=== PATIENT | male | born 1950 | race Caucasian/White ===

== ENCOUNTER 2020-02-22 06:09 | Inpatient (IN) ==
[~2020-02-22 06:09] MED LIST: Dextrose 50 % in Water (Vial) 30 ML, Sodium Bicarbonate 20 MEQ, Lidocaine 1% 5 ML, Insu... TH ONE; Dextrose 50 % in Water (Vial) 30 ML, Sodium Bicarbonate 20 MEQ, Potassium Chloride 15 M... TH ONE; Heparin 15,000 UNIT in 0.9 % Sodium Chloride 500 ML IV ONE; Insulin Human Regular 100 UNIT in 0.9 % Sodium Chloride 100 ML IV PRN; Norepinephrine 4 MG in 0.9 % Sodium Chloride 250 ML IVC PRN
[2020-02-22] MEDS ORDERED: *HR* Midazolam HCl 5 MG/5 ML VIAL IVP ONE (06:30)
[2020-02-22] MEDS ORDERED: *HR* Rocuronium Bromide 50 MG/5 ML VIAL ONE ×2 (06:30→11:08)
[2020-02-22] MEDS ORDERED: *HR* PHENYLEPHRINE 1,000 MCG/10 ML SYRINGE IVP ONE (06:30)
[2020-02-22] MEDS ORDERED: Famotidine 20 MG/2 ML VIAL ONE (06:31)
[2020-02-22] MEDS ORDERED: *HR* Etomidate 20 MG/10 ML AMPUL IVP ONE (06:31)
[2020-02-22] MEDS ORDERED: *HR* FentaNYL (PF) 1,000 MCG/20 ML VIAL ONE (06:31)
[2020-02-22] MEDS ORDERED: Protamine Sulfate 250 MG/25 ML VIAL IVP ONE (06:35)
[2020-02-22] MEDS ORDERED: Calcium Gluconate 1,000 MG/10 ML VIAL ONE (06:35)
[2020-02-22] MEDS ORDERED: Tranexamic Acid 1,000 MG/10 ML VIAL ONE ×2 (06:35→10:31)
[2020-02-22] MEDS ORDERED: Vancomycin 1,500 MG/265 ML IV.SOLN IVPB ONE (06:40)
[2020-02-22] MEDS ORDERED: Aspirin 81 MG TAB.CHEW PO ONE (07:15)
[2020-02-22] MEDS ORDERED: *HR* Vasopressin 20 UNIT/ML VIAL ONE (08:05)
[2020-02-22 08:20] LABS: ABG Base Excess -1 mEq/L (-2 to 3); ABG Chloride 109 mEq/L (98-107); ABG Glucose 120 mg/dL (60-95); ABG HCO3 26 mEq/L (21-27); ABG Ionized Calcium 1.22 mmol/L (1.15-1.35); ABG Oxygen Saturation 100 % (95-98); ABG PCO2 57 mmHg (35-45); ABG PH 7.27 pH Units (7.32-7.45); ABG PO2 250 mmHg (85-104); ABG TCO2 28 mEq/L (20-26)
[2020-02-22] MEDS ORDERED: ceFAZolin 2,000 MG in 0.9 % Sodium Chloride 100 ML IVP ONE (08:50)
[2020-02-22] MEDS ORDERED: Chlorhexidine Rinse 15 ML MOUTHWASH MM SCH (09:00)
[2020-02-22 09:23] LABS: ABG Base Excess -2 mEq/L (-2 to 3); ABG Chloride 106 mEq/L (98-107); ABG Glucose 142 mg/dL (60-95); ABG HCO3 25 mEq/L (21-27); ABG Ionized Calcium 1.19 mmol/L (1.15-1.35); ABG Oxygen Saturation 100 % (95-98); ABG PCO2 52 mmHg (35-45); ABG PO2 192 mmHg (85-104); ABG TCO2 27 mEq/L (20-26)
[2020-02-22 10:21] LABS: ABG Base Excess 0 mEq/L (-2 to 3); ABG Chloride 100 mEq/L (98-107); ABG Glucose 191 mg/dL (60-95); ABG HCO3 25 mEq/L (21-27); ABG Ionized Calcium 1.01 mmol/L (1.15-1.35); ABG PCO2 38 mmHg (35-45); ABG PH 7.42 pH Units (7.32-7.45); ABG PO2 > 630 mmHg (85-104); ABG TCO2 26 mEq/L (20-26)
[2020-02-22 10:56] LABS: ABG Base Excess 1 mEq/L (-2 to 3); ABG Chloride 104 mEq/L (98-107); ABG Glucose 179 mg/dL (60-95); ABG HCO3 25 mEq/L (21-27); ABG Ionized Calcium 1.04 mmol/L (1.15-1.35); ABG Oxygen Saturation 100 % (95-98); ABG PCO2 35 mmHg (35-45); ABG PH 7.47 pH Units (7.32-7.45); ABG PO2 603 mmHg (85-104); ABG TCO2 26 mEq/L (20-26)
[2020-02-22 11:18] LABS: ABG Base Excess 3 mEq/L (-2 to 3); ABG Chloride 105 mEq/L (98-107); ABG Glucose 146 mg/dL (60-95); ABG HCO3 27 mEq/L (21-27); ABG Ionized Calcium 1.01 mmol/L (1.15-1.35); ABG Oxygen Saturation 100 % (95-98); ABG PCO2 41 mmHg (35-45); ABG PH 7.43 pH Units (7.32-7.45); ABG PO2 569 mmHg (85-104); ABG TCO2 28 mEq/L (20-26)
[2020-02-22 12:04] LABS: ABG Base Excess 0 mEq/L (-2 to 3); ABG Chloride 104 mEq/L (98-107); ABG Glucose 100 mg/dL (60-95); ABG HCO3 26 mEq/L (21-27); ABG Oxygen Saturation 98 % (95-98); ABG PCO2 45 mmHg (35-45); ABG PH 7.37 pH Units (7.32-7.45); ABG PO2 101 mmHg (85-104); ABG TCO2 27 mEq/L (20-26)
[2020-02-22] MEDS ORDERED: Potassium Chloride 40 MEQ/200 ML BAG IVPB PRN (12:29)
[2020-02-22] MEDS ORDERED: Insulin Regular, Human 100 UNIT/ML IV PRN (12:29)
[2020-02-22] MEDS ORDERED: Naloxone 0.4 MG/ML INJ IVP PRN (12:29)
[2020-02-22] MEDS ORDERED: *HR* Promethazine 25 MG/ML VIAL IVP PRN (12:29)
[2020-02-22] MEDS ORDERED: Albumin Human 5% 12.5 GM/250 ML IV.SOLN IVPB PRN (12:29)
[2020-02-22] MEDS ORDERED: *HR* Dextrose 50 % in Water (Vial) 50 ML VIAL IVP PRN (12:29)
[2020-02-22] MEDS ORDERED: Acetaminophen 325 MG TABLET PO PRN (12:29)
[2020-02-22] MEDS ORDERED: Ondansetron 4 MG/2 ML VIAL IVP PRN (12:29)
[2020-02-22] MEDS ORDERED: Insulin Human Regular 100 UNIT in 0.9 % Sodium Chloride 100 ML IVC SCH (12:30)
[2020-02-22] MEDS ORDERED: Norepinephrine 4 MG/254 ML IV.SOLN IVC SCH (12:30)
[2020-02-22 12:45] LABS: ABG Base Excess 2 mEq/L (-2 to 3); ABG HCO3 28 mEq/L (21-27); ABG Oxygen Saturation 100 % (95-98); ABG PCO2 46 mmHg (35-45); ABG PH 7.39 pH Units (7.32-7.45); ABG PO2 184 mmHg (85-104); ABG TCO2 29 mEq/L (20-26)
[2020-02-22 12:55] LABS: Basophils # 0.1 K/mcL (0.0-0.2); Basophils % 0.5 %; Eosinophils # 0.3 K/mcL (0.0-0.6); Eosinophils % 1.5 %; Hematocrit 29.6 % (37.5-50.1); Hemoglobin 9.4 g/dL (12.9-16.9); Immature Granulocytes % 0.7 % (0-4); Lymphocytes # 1.6 K/mcL (0.6-4.6); Lymphocytes % 8.9 %; Mean Corpuscular HGB Conc 31.8 g/dL (31.6-35.5); Mean Corpuscular Hemoglobin 26.8 pg (28.0-33.3); Mean Corpuscular Volume 84.3 fL (83.0-100.0); Mean Platelet Volume 9.2 fL (9.4-12.4); Monocytes # 0.6 K/mcL (0.0-1.3); Monocytes % 3.2 %; Neutrophils # 15.6 K/mcL (1.6-8.9); Platelet Count 232 K/mcL (140-400); Red Blood Count 3.51 M/mcL (4.19-5.50); Red Cell Distribution Width 13.4 % (11.5-14.5); Segmented Neutrophils % 85.2 %
[2020-02-22 12:58] LABS: White Blood Count 18.3 K/mcL (4.3-11.1)
[2020-02-22 13:11] LABS: INR 1.4
[2020-02-22 13:13] LABS: Activated Partial Thrombo Time 32.9 Seconds (26.0-36.0)
[2020-02-22 13:15] LABS: Prothrombin Time 16.4 Seconds (9.4-12.1)
[2020-02-22 13:17] LABS: BUN/Creatinine Ratio 16 (6-26); Blood Urea Nitrogen 15 mg/dL (8-23); Calcium 8.8 mg/dL (8.6-10.3); Carbon Dioxide 26 mEq/L (23-29); Chloride 107 mEq/L (98-107); Glucose 87 mg/dL (70-105); Magnesium 2.6 mg/dL (1.6-2.6); Osmolality,Calculated 288 (280-300); Potassium 4.2 mEq/L (3.5-5.1); Sodium 139 mEq/L (136-145); eGFR For African Americans > 60 (> 60); eGFR For Non-African Americans > 60 (> 60)
[2020-02-22] MEDS: niCARdipine 20 MG/200 ML MLS IVC SCH ×3 (13:31→21:05)
[2020-02-22] MEDS: 0.9 % Sodium Chloride 1,000 ML IVC SCH (13:41)
[2020-02-22] MEDS: *HR* FentaNYL (PF) 100 MCG/2 ML VIAL IVP PRN ×4 (15:05→22:06)
[2020-02-22] MEDS ORDERED: Albumin Human 25% 25 GM/100 ML IV.SOLN IVPB ONE (15:31)
[2020-02-22] MEDS ORDERED: Mannitol 25% vial 12.5 GM/50 ML VIAL IVPB ONE (15:31)
[2020-02-22] MEDS ORDERED: Sodium Bicarbonate 50 MEQ/50 ML VIAL IVP ONE (15:31)
[2020-02-22] MEDS ORDERED: Lidocaine 2% Syringe 100 MG/5 ML IVP ONE (15:31)
[2020-02-22] MEDS ORDERED: *HR* Phenylephrine 10 MG/ML VIAL IVC ONE (15:31)
[2020-02-22] MEDS ORDERED: *HR* Magnesium Sulfate 2 GM/50 ML PIGGYBACK IVPB ONE (15:31)
[2020-02-22] MEDS ORDERED: Tranexamic Acid 1,000 MG/10 ML VIAL IR ONE (15:31)
[2020-02-22] MEDS ORDERED: Heparin 1,000 UNITS/500 mL IV.SOLN IR ONE (15:31)
[2020-02-22] MEDS ORDERED: *HR* Heparin 10,000 UNIT/10 ML VIAL IR ONE (15:31)
[2020-02-22] MEDS: *HR* OxyCODONE/APAP 5/325 TABLET PO PRN (16:18)
[2020-02-22 16:49] LABS: ABG Base Excess 0 mEq/L (-2 to 3); ABG HCO3 25 mEq/L (21-27); ABG Oxygen Saturation 97 % (95-98); ABG PCO2 42 mmHg (35-45); ABG PH 7.39 pH Units (7.32-7.45); ABG PO2 91 mmHg (85-104); ABG TCO2 27 mEq/L (20-26); Blood Gas VT 700 cc
[2020-02-22 17:59] LABS: ABG Base Excess 2 mEq/L (-2 to 3); ABG HCO3 28 mEq/L (21-27); ABG Oxygen Saturation 93 % (95-98); ABG PCO2 55 mmHg (35-45); ABG PH 7.32 pH Units (7.32-7.45); ABG PO2 73 mmHg (85-104); ABG TCO2 30 mEq/L (20-26)
[2020-02-22 18:51] LABS: ABG Base Excess 0 mEq/L (-2 to 3); ABG HCO3 26 mEq/L (21-27); ABG Oxygen Saturation 99 % (95-98); ABG PCO2 43 mmHg (35-45); ABG PH 7.38 pH Units (7.32-7.45); ABG PO2 129 mmHg (85-104); ABG TCO2 27 mEq/L (20-26)
[2020-02-22] MEDS: CeFAZolin 2 GM/120 ML BAG IVPB SCH (19:30)
[2020-02-22] MEDS: Chlorhexidine Rinse 15 ML MOUTHWASH MM SCH (21:04)
[2020-02-23] MEDS: *HR* OxyCODONE/APAP 5/325 TABLET PO PRN (03:36)
[2020-02-23 04:29] LABS: Basophils % 0.3 %; Eosinophils % 0.1 %; Hematocrit 30.2 % (37.5-50.1); Hemoglobin 9.7 g/dL (12.9-16.9); Immature Granulocytes % 0.4 % (0-4); Lymphocytes # 1.3 K/mcL (0.6-4.6); Lymphocytes % 9.8 %; Mean Corpuscular HGB Conc 32.1 g/dL (31.6-35.5); Mean Corpuscular Hemoglobin 27.2 pg (28.0-33.3); Mean Corpuscular Volume 84.6 fL (83.0-100.0); Mean Platelet Volume 9.7 fL (9.4-12.4); Monocytes # 1.2 K/mcL (0.0-1.3); Monocytes % 8.9 %; Platelet Count 212 K/mcL (140-400); Red Blood Count 3.57 M/mcL (4.19-5.50); Red Cell Distribution Width 13.2 % (11.5-14.5); Segmented Neutrophils % 80.5 %; White Blood Count 13.7 K/mcL (4.3-11.1)
[2020-02-23 04:51] LABS: BUN/Creatinine Ratio 18 (6-26); Blood Urea Nitrogen 16 mg/dL (8-23); Calcium 7.8 mg/dL (8.6-10.3); Carbon Dioxide 25 mEq/L (23-29); Chloride 106 mEq/L (98-107); Glucose 123 mg/dL (70-105); Osmolality,Calculated 289 (280-300); Potassium 4.6 mEq/L (3.5-5.1); Sodium 138 mEq/L (136-145); eGFR For African Americans > 60 (> 60); eGFR For Non-African Americans > 60 (> 60)
[2020-02-23] MEDS: niCARdipine 20 MG/200 ML MLS IVC SCH ×2 (05:11→05:14)
[2020-02-23] MEDS: CeFAZolin 2 GM/120 ML BAG IVPB SCH (05:14)
[2020-02-23] MEDS: 0.9 % Sodium Chloride 1,000 ML IVC SCH (06:10)
[2020-02-23] MEDS: Chlorhexidine Rinse 15 ML MOUTHWASH MM SCH ×2 (07:52→21:12)
[2020-02-23] MEDS ORDERED: Verapamil ER (24 HR) 240 MG TABLET.ER PO SCH (09:00)
[2020-02-23] MEDS ORDERED: allopurinoL 100 MG TABLET PO SCH (09:00)
[2020-02-23] MEDS ORDERED: Aspirin Enteric Coated 81 MG Tablet PO SCH (09:00)
[2020-02-23] MEDS ORDERED: Pantoprazole 40 MG VIAL IVP SCH (09:00)
[2020-02-23] MEDS ORDERED: *HR* Promethazine 25 MG/ML VIAL IVP PRN (12:29)
[2020-02-23] MEDS ORDERED: *HR* FentaNYL (PF) 100 MCG/2 ML VIAL IVP PRN (12:29)
[2020-02-23] MEDS ORDERED: Ondansetron 4 MG/2 ML VIAL IVP PRN (12:29)
[2020-02-23] MEDS ORDERED: *HR* Dextrose 50 % in Water (Vial) 50 ML VIAL IVP PRN (12:29)
[2020-02-23] MEDS ORDERED: Acetaminophen 325 MG TABLET PO PRN (12:29)
[2020-02-23] MEDS ORDERED: Naloxone 0.4 MG/ML INJ IVP PRN (12:29)
[2020-02-23] MEDS ORDERED: *HR* OxyCODONE/APAP 5/325 TABLET PO PRN (12:29)
[2020-02-23] MEDS ORDERED: Dextrose Gel 15 GM/37.5 ML TUBE PO PRN ×2 (12:29)
[2020-02-23] MEDS ORDERED: D5% in Water 1,000 ML IVC PRN (12:29)
[2020-02-23] MEDS: Ketorolac 15 MG/ML VIAL IVP SCH ×2 (14:05→21:11)
[2020-02-23] MEDS: Insulin LISPRO 300 UNITS/3 ML VIAL SQ SCH ×3 (16:36→21:29)
[2020-02-23] MEDS: *HR* Heparin 5,000 UNIT/ML VIAL SQ SCH (18:09)
[2020-02-23] MEDS ORDERED: Amiodarone Premix 360 MG/200 ML BAG IVC ONE (19:41)
[2020-02-23] MEDS ORDERED: Amiodarone Premix 150 MG/100 ML BAG IVPB ONE (19:41)
[2020-02-24] MEDS: Amiodarone Premix 360 MG/200 ML BAG IVC SCH ×2 (03:20→17:05)
[2020-02-24] MEDS: Ketorolac 15 MG/ML VIAL IVP SCH ×4 (03:22→20:24)
[2020-02-24 03:55] LABS: Basophils % 0.3 %; Eosinophils # 0.1 K/mcL (0.0-0.6); Hematocrit 27.8 % (37.5-50.1); Hemoglobin 8.7 g/dL (12.9-16.9); Immature Granulocytes % 0.4 % (0-4); Lymphocytes # 1.5 K/mcL (0.6-4.6); Mean Corpuscular HGB Conc 31.3 g/dL (31.6-35.5); Mean Corpuscular Hemoglobin 26.6 pg (28.0-33.3); Mean Platelet Volume 9.9 fL (9.4-12.4); Monocytes % 8.9 %; Neutrophils # 8.9 K/mcL (1.6-8.9); Platelet Count 166 K/mcL (140-400); Red Blood Count 3.27 M/mcL (4.19-5.50); Red Cell Distribution Width 13.4 % (11.5-14.5); Segmented Neutrophils % 76.4 %; White Blood Count 11.7 K/mcL (4.3-11.1)
[2020-02-24 03:58] LABS: BUN/Creatinine Ratio 28 (6-26); Blood Urea Nitrogen 25 mg/dL (8-23); Carbon Dioxide 26 mEq/L (23-29); Chloride 102 mEq/L (98-107); Glucose 128 mg/dL (70-105); Osmolality,Calculated 282 (280-300); Potassium 4.1 mEq/L (3.5-5.1); Sodium 133 mEq/L (136-145); eGFR For African Americans > 60 (> 60); eGFR For Non-African Americans > 60 (> 60)
[2020-02-24] MEDS: *HR* Heparin 5,000 UNIT/ML VIAL SQ SCH ×2 (06:09→17:16)
[2020-02-24] MEDS: Chlorhexidine Rinse 15 ML MOUTHWASH MM SCH ×2 (08:11→20:24)
[2020-02-24] MEDS: Pantoprazole 40 MG VIAL IVP SCH (08:12)
[2020-02-24] MEDS: Aspirin Enteric Coated 81 MG Tablet PO SCH (08:12)
[2020-02-24] MEDS: allopurinoL 100 MG TABLET PO SCH (08:12)
[2020-02-24] MEDS: Insulin LISPRO 300 UNITS/3 ML VIAL SQ SCH ×4 (08:13→20:07)
[2020-02-24] MEDS ORDERED: Verapamil ER (24 HR) 240 MG TABLET.ER PO SCH (09:00)
[2020-02-25] MEDS: Ketorolac 15 MG/ML VIAL IVP SCH ×4 (02:25→19:53)
[2020-02-25] MEDS: Amiodarone Premix 360 MG/200 ML BAG IVC SCH (05:43)
[2020-02-25] MEDS: *HR* Heparin 5,000 UNIT/ML VIAL SQ SCH ×2 (05:44→17:05)
[2020-02-25 06:35] LABS: Basophils % 0.3 %; Eosinophils # 0.3 K/mcL (0.0-0.6); Hemoglobin 8.9 g/dL (12.9-16.9); Immature Granulocytes % 0.4 % (0-4); Lymphocytes # 1.5 K/mcL (0.6-4.6); Lymphocytes % 10.7 %; Mean Corpuscular HGB Conc 31.8 g/dL (31.6-35.5); Mean Corpuscular Hemoglobin 26.6 pg (28.0-33.3); Mean Corpuscular Volume 83.6 fL (83.0-100.0); Mean Platelet Volume 10.2 fL (9.4-12.4); Monocytes % 7.2 %; Platelet Count 213 K/mcL (140-400); Red Blood Count 3.35 M/mcL (4.19-5.50); Red Cell Distribution Width 13.8 % (11.5-14.5); Segmented Neutrophils % 79.4 %; White Blood Count 13.8 K/mcL (4.3-11.1)
[2020-02-25 06:44] LABS: BUN/Creatinine Ratio 34 (6-26); Blood Urea Nitrogen 30 mg/dL (8-23); Calcium 7.8 mg/dL (8.6-10.3); Carbon Dioxide 25 mEq/L (23-29); Chloride 103 mEq/L (98-107); Glucose 110 mg/dL (70-105); Osmolality,Calculated 285 (280-300); Potassium 3.6 mEq/L (3.5-5.1); Sodium 134 mEq/L (136-145); eGFR For African Americans > 60 (> 60); eGFR For Non-African Americans > 60 (> 60)
[2020-02-25] MEDS: Insulin LISPRO 300 UNITS/3 ML VIAL SQ SCH ×4 (08:11→21:06)
[2020-02-25] MEDS: Pantoprazole 40 MG VIAL IVP SCH (08:48)
[2020-02-25] MEDS: Chlorhexidine Rinse 15 ML MOUTHWASH MM SCH ×2 (08:48→19:53)
[2020-02-25] MEDS: allopurinoL 100 MG TABLET PO SCH (08:49)
[2020-02-25] MEDS: Aspirin Enteric Coated 81 MG Tablet PO SCH (08:49)
[2020-02-25] MEDS: *HR* Amiodarone 200 MG TABLET PO SCH ×2 (09:41→19:53)
[2020-02-25] MEDS: Verapamil ER (24 HR) 120 MG TABLET.ER PO SCH (09:41)
[2020-02-26] MEDS: Ketorolac 15 MG/ML VIAL IVP SCH ×2 (02:44→07:20)
[2020-02-26] MEDS: *HR* Heparin 5,000 UNIT/ML VIAL SQ SCH (05:29)
[2020-02-26] MEDS: Insulin LISPRO 300 UNITS/3 ML VIAL SQ SCH ×4 (07:08→20:49)
[2020-02-26] MEDS: Pantoprazole 40 MG VIAL IVP SCH (07:20)
[2020-02-26] MEDS: *HR* Amiodarone 200 MG TABLET PO SCH ×2 (07:21→20:45)
[2020-02-26] MEDS: allopurinoL 100 MG TABLET PO SCH (07:21)
[2020-02-26] MEDS: Verapamil ER (24 HR) 120 MG TABLET.ER PO SCH (07:21)
[2020-02-26] MEDS: Chlorhexidine Rinse 15 ML MOUTHWASH MM SCH ×2 (07:21→20:46)
[2020-02-26] MEDS: Aspirin Enteric Coated 81 MG Tablet PO SCH (07:21)
[2020-02-26] MEDS: *HR* Dabigatran 150 MG CAPSULE PO SCH (20:43)
[2020-02-27 00:59] LABS: Basophils % 0.4 %; Eosinophils # 0.4 K/mcL (0.0-0.6); Eosinophils % 3.5 %; Hematocrit 27.5 % (37.5-50.1); Hemoglobin 8.6 g/dL (12.9-16.9); Immature Granulocytes % 0.6 % (0-4); Lymphocytes # 1.4 K/mcL (0.6-4.6); Lymphocytes % 13.1 %; Mean Corpuscular HGB Conc 31.3 g/dL (31.6-35.5); Mean Corpuscular Hemoglobin 25.6 pg (28.0-33.3); Mean Corpuscular Volume 81.8 fL (83.0-100.0); Mean Platelet Volume 9.6 fL (9.4-12.4); Monocytes # 0.8 K/mcL (0.0-1.3); Monocytes % 7.9 %; Neutrophils # 7.8 K/mcL (1.6-8.9); Platelet Count 299 K/mcL (140-400); Red Blood Count 3.36 M/mcL (4.19-5.50); Red Cell Distribution Width 14.3 % (11.5-14.5); Segmented Neutrophils % 74.5 %; White Blood Count 10.5 K/mcL (4.3-11.1)
[2020-02-27 01:14] LABS: BUN/Creatinine Ratio 30 (6-26); Blood Urea Nitrogen 24 mg/dL (8-23); Calcium 8.2 mg/dL (8.6-10.3); Carbon Dioxide 24 mEq/L (23-29); Chloride 102 mEq/L (98-107); Glucose 115 mg/dL (70-105); Osmolality,Calculated 283 (280-300); Potassium 3.4 mEq/L (3.5-5.1); Sodium 134 mEq/L (136-145); eGFR For African Americans > 60 (> 60); eGFR For Non-African Americans > 60 (> 60)
[2020-02-27] MEDS: *HR* Dabigatran 150 MG CAPSULE PO SCH ×2 (07:35→19:58)
[2020-02-27] MEDS: Chlorhexidine Rinse 15 ML MOUTHWASH MM SCH ×2 (07:35→19:58)
[2020-02-27] MEDS: *HR* Amiodarone 200 MG TABLET PO SCH ×2 (07:35→19:58)
[2020-02-27] MEDS: Verapamil ER (24 HR) 120 MG TABLET.ER PO SCH (07:35)
[2020-02-27] MEDS: Aspirin Enteric Coated 81 MG Tablet PO SCH (07:35)
[2020-02-27] MEDS: allopurinoL 100 MG TABLET PO SCH (07:35)
[2020-02-27] MEDS: Pantoprazole 40 MG VIAL IVP SCH (07:36)
[2020-02-27] MEDS: Insulin LISPRO 300 UNITS/3 ML VIAL SQ SCH ×4 (07:36→19:59)
[2020-02-27] MEDS ORDERED: Potassium Chloride Elixir 20 MEQ/15 ML UDC PO ONE (13:20)
[2020-02-28] MEDS: Aspirin Enteric Coated 81 MG Tablet PO SCH (08:05)
[2020-02-28] MEDS: Verapamil ER (24 HR) 120 MG TABLET.ER PO SCH (08:05)
[2020-02-28] MEDS: Pantoprazole 40 MG VIAL IVP SCH (08:05)
[2020-02-28] MEDS: Chlorhexidine Rinse 15 ML MOUTHWASH MM SCH (08:06)
[2020-02-28] MEDS: *HR* Dabigatran 150 MG CAPSULE PO SCH (08:06)
[2020-02-28] MEDS: allopurinoL 100 MG TABLET PO SCH (08:06)
[2020-02-28] MEDS: *HR* Amiodarone 200 MG TABLET PO SCH (08:06)
[2020-02-28] MEDS: Insulin LISPRO 300 UNITS/3 ML VIAL SQ SCH ×2 (08:10→11:42)
[2020-02-28 11:10] VITALS: BP 119/73
== END 2020-02-28 15:32 | disposition home or self-care (01) | DRG 166 ==
LOC: SAMDAY 06:09 → ICNU 12:23 → 2NNU 02-24 13:11
PROVIDERS: ADMIT Thoracic Surgery (Cardiothoracic Vascular Surgery); ATTEND Thoracic Surgery (Cardiothoracic Vascular Surgery)

== ENCOUNTER 2020-10-12 18:35 | Inpatient (IN) ==
[2020-10-12] MEDS ORDERED: *HR* Heparin 5,000 UNIT/ML VIAL IVP ONE (19:26)
[2020-10-12] MEDS ORDERED: *HR* Heparin 5,000 UNIT/ML VIAL IVP PRN ×2 (19:26)
[2020-10-12] MEDS ORDERED: Heparin 25,000UNIT/250ML 1/2NS 25,000 UNIT/250 ML IV.SOLN IVC SCH (19:30)
[2020-10-12 19:49] LABS: Basophils # 0.1 K/mcL (0.0-0.2); Basophils % 0.7 %; Eosinophils # 0.2 K/mcL (0.0-0.6); Eosinophils % 1.5 %; Hemoglobin 9.7 g/dL (12.9-16.9); Immature Granulocytes % 0.4 % (0-4); Lymphocytes % 9.1 %; Mean Corpuscular HGB Conc 30.3 g/dL (31.6-35.5); Mean Corpuscular Hemoglobin 23.4 pg (28.0-33.3); Mean Corpuscular Volume 77.1 fL (83.0-100.0); Mean Platelet Volume 10.1 fL (9.4-12.4); Monocytes # 0.8 K/mcL (0.0-1.3); Monocytes % 7.7 %; Neutrophils # 8.7 K/mcL (1.6-8.9); Platelet Count 305 K/mcL (140-400); Red Blood Count 4.15 M/mcL (4.19-5.50); Red Cell Distribution Width 17.9 % (11.5-14.5); Segmented Neutrophils % 80.6 %; White Blood Count 10.8 K/mcL (4.3-11.1)
[2020-10-12 19:59] LABS: Heparin anti-factor XA UFH < 0.04 IU/mL (0.30-0.70)
[2020-10-12 20:00] LABS: INR 1.6; Prothrombin Time 18.4 Seconds (9.4-12.1)
[2020-10-12 20:08] LABS: BUN/Creatinine Ratio 13 (6-26); Blood Urea Nitrogen 10 mg/dL (8-23); Calcium 7.9 mg/dL (8.6-10.3); Carbon Dioxide 22 mEq/L (23-29); Chloride 104 mEq/L (98-107); Glucose 201 mg/dL (70-105); Osmolality,Calculated 289 (280-300); Sodium 137 mEq/L (136-145); eGFR For African Americans > 60 (> 60); eGFR For Non-African Americans > 60 (> 60)
[2020-10-12] MEDS ORDERED: Potassium Chloride 20 MEQ, Lidocaine 1% 2 ML in 0.9 % Sodium Chloride 250 ML IVPB ONE (20:15)
[2020-10-12] MEDS ORDERED: Potassium Chloride 40 MEQ, Lidocaine 1% 2 ML in 0.9 % Sodium Chloride 500 ML IVPB ONE (20:24)
[2020-10-12] MEDS ORDERED: Ondansetron 4 MG/2 ML VIAL IVP PRN (21:42)
[2020-10-12] MEDS ORDERED: Naloxone 0.4 MG/ML INJ IVP PRN (21:42)
[2020-10-13 01:24] LABS: Basophils # 0.1 K/mcL (0.0-0.2); Basophils % 0.6 %; Eosinophils # 0.2 K/mcL (0.0-0.6); Eosinophils % 1.9 %; Hemoglobin 9.2 g/dL (12.9-16.9); Immature Granulocytes % 0.4 % (0-4); Lymphocytes % 10.1 %; Mean Corpuscular HGB Conc 31.7 g/dL (31.6-35.5); Mean Corpuscular Hemoglobin 24.3 pg (28.0-33.3); Mean Corpuscular Volume 76.5 fL (83.0-100.0); Mean Platelet Volume 10.1 fL (9.4-12.4); Monocytes # 0.8 K/mcL (0.0-1.3); Monocytes % 8.4 %; Neutrophils # 7.6 K/mcL (1.6-8.9); Platelet Count 275 K/mcL (140-400); Red Blood Count 3.79 M/mcL (4.19-5.50); Segmented Neutrophils % 78.6 %; White Blood Count 9.6 K/mcL (4.3-11.1)
[2020-10-13 01:31] LABS: Heparin anti-factor XA UFH 0.54 IU/mL (0.30-0.70)
[2020-10-13 01:32] LABS: INR 1.6; Prothrombin Time 18.2 Seconds (9.4-12.1)
[2020-10-13 01:47] LABS: Alanine Aminotransferase 32 Units/L (7-52); Albumin 2.6 g/dL (3.5-5.7); Albumin/Globulin Ratio 0.8 (1.1-2.2); Alkaline Phosphatase 303 Units/L (34-104); Aspartate Amino Transferase 52 Units/L (13-39); BUN/Creatinine Ratio 13 (6-26); Bilirubin,Total 0.7 mg/dL (0.3-1.0); Blood Urea Nitrogen 9 mg/dL (8-23); Calcium 7.9 mg/dL (8.6-10.3); Carbon Dioxide 22 mEq/L (23-29); Chloride 106 mEq/L (98-107); Globulin 3.2 g/dL (2.4-3.5); Glucose 179 mg/dL (70-105); Osmolality,Calculated 289 (280-300); Phosphorous 2.3 mg/dL (2.7-4.5); Potassium 3.4 mEq/L (3.5-5.1); Sodium 138 mEq/L (136-145); Total Protein 5.8 g/dL (6.4-8.9); eGFR For African Americans > 60 (> 60); eGFR For Non-African Americans > 60 (> 60)
[2020-10-13] MEDS ORDERED: Iron Sucrose Complex 400 MG in 0.9 % Sodium Chloride 250 ML IVPB ONE (10:08)
[2020-10-13 11:49] LABS: Adenovirus Not Detected (Not Detect); Bordetella Pertussis Not Detected (Not Detect); Chlamydophila pneumoniae Not Detected (Not Detect); Coronavirus 229E Not Detected (Not Detect); Coronavirus HKU1 Not Detected (Not Detect); Coronavirus NL63 Not Detected (Not Detect); Coronavirus OC43 Not Detected (Not Detect); Human Metapneumovirus Not Detected (Not Detect); Human Rhinovirus/Enterovirus Not Detected (Not Detect); Influenza A Subtype 2009 H1 Not Detected (Not Detect); Influenza B Not Detected (Not Detect); Mycoplasma pneumoniae Not Detected (Not Detect); Parainfluenza Virus 1 Not Detected (Not Detect); Parainfluenza Virus 2 Not Detected (Not Detect); Parainfluenza Virus 3 Not Detected (Not Detect); Parainfluenza Virus 4 Not Detected (Not Detect); Respiratory Syncytial Virus Not Detected (Not Detect); SARS-CoV-2 Not Detected (Not Detect)
[2020-10-13] MEDS ORDERED: 0.9 % Sodium Chloride 500 ML ONE (12:14)
[2020-10-13] MEDS ORDERED: *HR* FentaNYL (PF) 100 MCG/2 ML VIAL IVP ONE ×2 (12:36→12:45)
[2020-10-13] MEDS ORDERED: *HR* Midazolam HCl 2 MG/2 ML VIAL IVP ONE (12:36)
[2020-10-13] MEDS ORDERED: *HR* Heparin 5,000 UNIT/ML VIAL IVP PRN ×2 (14:58)
[2020-10-13] MEDS ORDERED: Heparin 25,000UNIT/250ML 1/2NS 25,000 UNIT/250 ML IV.SOLN IVC SCH (15:00)
[2020-10-13 16:28] LABS: Hematocrit 31.2 % (37.5-50.1); Hemoglobin 9.5 g/dL (12.9-16.9); Mean Corpuscular HGB Conc 30.4 g/dL (31.6-35.5); Mean Corpuscular Hemoglobin 23.6 pg (28.0-33.3); Mean Corpuscular Volume 77.6 fL (83.0-100.0); Mean Platelet Volume 9.9 fL (9.4-12.4); Platelet Count 288 K/mcL (140-400); Red Blood Count 4.02 M/mcL (4.19-5.50); Red Cell Distribution Width 18.2 % (11.5-14.5); White Blood Count 10.2 K/mcL (4.3-11.1)
[2020-10-13 16:36] LABS: Heparin anti-factor XA UFH 0.05 IU/mL (0.30-0.70)
[2020-10-13 16:37] LABS: INR 1.6; Prothrombin Time 17.7 Seconds (9.4-12.1)
[2020-10-13] MEDS ORDERED: SODIUM CHLORIDE/NAHCO3/KCL/PEG 4,000 ML SOLN.RECON PO ONE (17:00)
[2020-10-14 04:11] LABS: Basophils # 0.1 K/mcL (0.0-0.2); Basophils % 0.8 %; Eosinophils # 0.2 K/mcL (0.0-0.6); Eosinophils % 1.6 %; Hematocrit 30.9 % (37.5-50.1); Hemoglobin 9.4 g/dL (12.9-16.9); Immature Granulocytes % 0.3 % (0-4); Lymphocytes # 0.9 K/mcL (0.6-4.6); Lymphocytes % 8.1 %; Mean Corpuscular HGB Conc 30.4 g/dL (31.6-35.5); Mean Platelet Volume 10.1 fL (9.4-12.4); Monocytes # 0.7 K/mcL (0.0-1.3); Monocytes % 6.8 %; Neutrophils # 8.6 K/mcL (1.6-8.9); Platelet Count 278 K/mcL (140-400); Red Blood Count 3.91 M/mcL (4.19-5.50); Red Cell Distribution Width 18.5 % (11.5-14.5); Segmented Neutrophils % 82.4 %; White Blood Count 10.5 K/mcL (4.3-11.1)
[2020-10-14 04:28] LABS: BUN/Creatinine Ratio 13 (6-26); Blood Urea Nitrogen 9 mg/dL (8-23); Calcium 8.1 mg/dL (8.6-10.3); Carbon Dioxide 22 mEq/L (23-29); Chloride 106 mEq/L (98-107); Glucose 119 mg/dL (70-105); Magnesium 1.8 mg/dL (1.6-2.6); Osmolality,Calculated 282 (280-300); Phosphorous 2.2 mg/dL (2.7-4.5); Potassium 3.7 mEq/L (3.5-5.1); Sodium 136 mEq/L (136-145); eGFR For African Americans > 60 (> 60); eGFR For Non-African Americans > 60 (> 60)
[2020-10-14 07:44] VITALS: BP 116/69
[2020-10-14] MEDS ORDERED: allopurinoL 100 MG TABLET PO SCH (09:00)
[2020-10-14] MEDS ORDERED: Apixaban 5 MG TABLET PO SCH (09:00)
[2020-10-14] MEDS ORDERED: Aspirin Enteric Coated 81 MG Tablet PO SCH (09:00)
[2020-10-14] MEDS ORDERED: lisinopriL 20 MG TABLET PO SCH (09:00)
== END 2020-10-14 12:27 | disposition home or self-care (01) | DRG 240 ==
LOC: EMEROOARM 18:35 → 3ANU 18:35 → SUATTDRO 20:40 → 3ANU 21:01
PROVIDERS: ADMIT Family Medicine; ATTEND Internal Medicine
PROC: IRLIVER (2020-10-13 13:00)

== ENCOUNTER 2020-11-13 11:47 | Inpatient (IN) ==
[2020-11-13] MEDS ORDERED: Melatonin 3 MG TABLET PO PRN (14:29)
[2020-11-13] MEDS ORDERED: Naloxone 0.4 MG/ML INJ IVP PRN (14:29)
[2020-11-13] MEDS: 0.9 % Sodium Chloride 1,000 ML IVC SCH (15:29)
[2020-11-13] MEDS: Albumin 25% 25gram/100mL 25 GM/100 ML IV.SOLN IVPB SCH ×2 (15:34→23:34)
[2020-11-13] MEDS: Piperacillin/Tazobactam 3.375 GM in 0.9 % Sodium Chloride Mini Bag 100 ML IVPB SCH ×2 (17:41→23:37)
[2020-11-13] MEDS ORDERED: Fluticasone Propionate Nasal 50 MCG/SPRAY BOTTLE NS PRN (22:22)
[2020-11-13] MEDS: Apixaban 5 MG TABLET PO SCH (23:36)
[2020-11-14] MEDS: 0.9 % Sodium Chloride 1,000 ML IVC SCH ×2 (05:02→14:32)
[2020-11-14 07:04] LABS: Albumin 2.5 g/dL (3.5-5.7); Albumin/Globulin Ratio 1.1 (1.1-2.2); Bilirubin,Direct 1.6 mg/dL (0.0-0.2); Bilirubin,Indirect 1.3 mg/dL (0.0-1.0); Bilirubin,Total 2.9 mg/dL (0.3-1.0); Calcium 7.2 mg/dL (8.6-10.3); Globulin 2.2 g/dL (2.4-3.5); Potassium 2.9 mEq/L (3.5-5.1); Total Protein 4.7 g/dL (6.4-8.9)
[2020-11-14 08:49] LABS: Hemoglobin 9.4 g/dL (12.9-16.9)
[2020-11-14 08:51] LABS: Hematocrit 28.7 % (37.5-50.1); Immature Platelets 5.6 % (1.1-6.1); Mean Corpuscular HGB Conc 32.8 g/dL (31.6-35.5); Mean Corpuscular Hemoglobin 25.5 pg (28.0-33.3); Platelet Count 105 K/mcL (140-400); Red Blood Count 3.68 M/mcL (4.19-5.50); Red Cell Distribution Width 22.5 % (11.5-14.5)
[2020-11-14] MEDS: Albumin 25% 25gram/100mL 25 GM/100 ML IV.SOLN IVPB SCH ×2 (09:11→14:51)
[2020-11-14] MEDS: Apixaban 5 MG TABLET PO SCH ×2 (09:12→20:49)
[2020-11-14] MEDS: Aspirin Enteric Coated 81 MG Tablet PO SCH (09:12)
[2020-11-14] MEDS: Metoprolol XL (24 HR) Succ 25 MG TAB.ER.24H PO SCH (09:12)
[2020-11-14] MEDS: Piperacillin/Tazobactam 3.375 GM in 0.9 % Sodium Chloride Mini Bag 100 ML IVPB SCH ×2 (10:45→16:11)
[2020-11-14 11:56] LABS: Dohle Bodies Present (Not Present); Lymphocytes # 0.5 K/mcL (0.6-4.6); Monocytes # 0.1 K/mcL (0.0-1.3); Neutrophils # 0.4 K/mcL (1.6-8.9); Reactive Lymphocytes Present (Not Present); Toxic Granulation Present (Not Present); Toxic Vacuolation Present (Not Present)
[2020-11-14 11:58] LABS: Anisocytosis 2+ (Not Present); Platelet Estimate Decreased (Normal)
[2020-11-14 11:59] LABS: Large Platelets Present (Not Present); Polychromasia 1+ (Not Present)
[2020-11-14 18:10] LABS: Bilirubin,Urine Negative (Negative); Blood,Urine Negative (Negative); Clarity,Urine Clear (Clear); Color,Urine Yellow (Yellow); Glucose,Urine (UA) Normal (Normal); Ketones,Urine Negative (Negative); Leukocyte Esterase,Urine Negative (Negative); Nitrite,Urine Negative (Negative); PH,Urine 5.5 pH Units (5.0-8.0); Protein,Urine Trace mg/dL (Neg-Trace); Specific Gravity,Urine 1.019 (1.010-1.025); Urobilinogen,Urine Normal (Normal)
[2020-11-15] MEDS: Albumin 25% 25gram/100mL 25 GM/100 ML IV.SOLN IVPB SCH ×2 (01:51→07:34)
[2020-11-15] MEDS: Piperacillin/Tazobactam 3.375 GM in 0.9 % Sodium Chloride Mini Bag 100 ML IVPB SCH ×4 (03:45→23:19)
[2020-11-15 06:37] LABS: Hematocrit 26.8 % (37.5-50.1); Hemoglobin 8.6 g/dL (12.9-16.9); Immature Platelets 7.4 % (1.1-6.1); Lymphocytes # 0.4 K/mcL (0.6-4.6); Mean Corpuscular HGB Conc 32.1 g/dL (31.6-35.5); Mean Corpuscular Hemoglobin 24.8 pg (28.0-33.3); Mean Corpuscular Volume 77.2 fL (83.0-100.0); Red Blood Count 3.47 M/mcL (4.19-5.50); Red Cell Distribution Width 22.7 % (11.5-14.5)
[2020-11-15 06:49] LABS: Alanine Aminotransferase 12 Units/L (7-52); Albumin 2.8 g/dL (3.5-5.7); Albumin/Globulin Ratio 1.5 (1.1-2.2); Alkaline Phosphatase 135 Units/L (34-104); Aspartate Amino Transferase 25 Units/L (13-39); BUN/Creatinine Ratio 39 (6-26); Bilirubin,Total 2.8 mg/dL (0.3-1.0); Blood Urea Nitrogen 51 mg/dL (8-23); Calcium 7.6 mg/dL (8.6-10.3); Carbon Dioxide 23 mEq/L (23-29); Chloride 105 mEq/L (98-107); Globulin 1.9 g/dL (2.4-3.5); Glucose 87 mg/dL (70-105); Osmolality,Calculated 299 (280-300); Potassium 3.5 mEq/L (3.5-5.1); Sodium 138 mEq/L (136-145); Total Protein 4.7 g/dL (6.4-8.9); eGFR For African Americans > 60 (> 60); eGFR For Non-African Americans 55 (> 60)
[2020-11-15 07:02] LABS: Platelet Count 80 K/mcL (140-400)
[2020-11-15 07:23] LABS: Monocytes # 0.5 K/mcL (0.0-1.3)
[2020-11-15 07:24] LABS: Anisocytosis 1+ (Not Present); Hypochromasia Present (Not Present); Large Platelets Present (Not Present); Poikilocytosis 1+ (Not Present); Reactive Lymphocytes Present (Not Present)
[2020-11-15] MEDS: Aspirin Enteric Coated 81 MG Tablet PO SCH (07:35)
[2020-11-15] MEDS: Apixaban 5 MG TABLET PO SCH ×2 (07:35→20:04)
[2020-11-15] MEDS: Metoprolol XL (24 HR) Succ 25 MG TAB.ER.24H PO SCH (09:27)
[2020-11-15] MEDS ORDERED: 0.9 % Sodium Chloride 1,000 ML IV ONE (09:28)
[2020-11-15] MEDS ORDERED: 0.9 % Sodium Chloride 1,000 ML ONE (09:30)
[2020-11-15] MEDS: Nystatin SUSP 5 ML UD.LIQ PO SCH ×3 (12:32→20:04)
[2020-11-16 02:14] LABS: Hemoglobin 9.7 g/dL (12.9-16.9); Nucleated Red Blood Cells 0.3 /100 WBC (0)
[2020-11-16 02:16] LABS: Basophils % 0.5 %; Eosinophils # 0.4 K/mcL (0.0-0.6); Eosinophils % 5.7 %; Hematocrit 31.1 % (37.5-50.1); Immature Granulocytes % 2.2 % (0-4); Immature Platelets 6.5 % (1.1-6.1); Lymphocytes # 0.7 K/mcL (0.6-4.6); Lymphocytes % 11.3 %; Mean Corpuscular HGB Conc 31.2 g/dL (31.6-35.5); Mean Corpuscular Volume 80.2 fL (83.0-100.0); Mean Platelet Volume 12.2 fL (9.4-12.4); Monocytes # 0.7 K/mcL (0.0-1.3); Monocytes % 10.1 %; Neutrophils # 4.5 K/mcL (1.6-8.9); Platelet Count 100 K/mcL (140-400); Red Blood Count 3.88 M/mcL (4.19-5.50); Red Cell Distribution Width 23.2 % (11.5-14.5); Segmented Neutrophils % 70.2 %; White Blood Count 6.4 K/mcL (4.3-11.1)
[2020-11-16 02:40] LABS: Anisocytosis 2+ (Not Present); Microcytosis Present (Not Present); Platelet Estimate Decreased (Normal); Poikilocytosis 1+ (Not Present); Polychromasia 2+ (Not Present); Schistocytes 1+ (Not Present)
[2020-11-16 02:42] LABS: BUN/Creatinine Ratio 43 (6-26); Blood Urea Nitrogen 43 mg/dL (8-23); Calcium 7.6 mg/dL (8.6-10.3); Carbon Dioxide 24 mEq/L (23-29); Chloride 106 mEq/L (98-107); Glucose 130 mg/dL (70-105); Osmolality,Calculated 297 (280-300); Potassium 3.8 mEq/L (3.5-5.1); Sodium 137 mEq/L (136-145); eGFR For African Americans > 60 (> 60); eGFR For Non-African Americans > 60 (> 60)
[2020-11-16] MEDS: Apixaban 5 MG TABLET PO SCH ×2 (07:51→20:51)
[2020-11-16] MEDS: Aspirin Enteric Coated 81 MG Tablet PO SCH (07:51)
[2020-11-16] MEDS: Nystatin SUSP 5 ML UD.LIQ PO SCH ×4 (07:51→20:51)
[2020-11-16] MEDS: Piperacillin/Tazobactam 3.375 GM in 0.9 % Sodium Chloride Mini Bag 100 ML IVPB SCH (07:52)
[2020-11-16] MEDS: Metoprolol XL (24 HR) Succ 25 MG TAB.ER.24H PO SCH (07:52)
[2020-11-16] MEDS ORDERED: Furosemide 40 MG/4 ML VIAL IVP ONE (08:04)
[2020-11-16 08:11] LABS: Adenovirus F 40/41 PCR Not detected (Not detect); Astrovirus PCR Not detected (Not detect); C.difficile Toxin A/B Gene PCR Not detected (Not detect); Campylobacter by PCR Not detected (Not detect); Cryptosporidium by PCR Not detected (Not detect); Cyclospora cayetanensis PCR Not detected (Not detect); E. coli O157 by PCR Not detected (Not detect); Entamoeba histolytica PCR Not detected (Not detect); Enteroaggregative E.coli(EAEC) Not detected (Not detect); Enteropathogenic E.coli(EPEC) Not detected (Not detect); Enterotoxigenic E.coli (ETEC) Not detected (Not detect); Giardia lamblia PCR Not detected (Not detect); Norovirus GI/GII PCR Not detected (Not detect); Plesiomonas shigelloides PCR Not detected (Not detect); Rotavirus A PCR Not detected (Not detect); Salmonella PCR Not detected (Not detect); Sapovirus PCR Not detected (Not detect); Shig/EnteroinvasiveE coli EIEC Not detected (Not detect); Shigalike tox-prod E coli STEC Not detected (Not detect); Vibrio PCR Not detected (Not detect); Vibrio cholerae PCR Not detected (Not detect); Yersinia enterocolitica PCR Not detected (Not detect)
[2020-11-16 08:58] LABS: Tissue Transglutaminase IgA 3 U/mL (0-3)
[2020-11-16 09:01] LABS: Immunoglobulin A (CELIAC) 592 mg/dL (68-408)
[2020-11-16 09:16] LABS: ABG Base Excess 0 mEq/L (-2 to 3); ABG HCO3 25 mEq/L (21-27); ABG Oxygen Saturation 94 % (95-98); ABG PCO2 40 mmHg (35-45); ABG PO2 69 mmHg (85-104); ABG TCO2 26 mEq/L (20-26)
[2020-11-16] MEDS ORDERED: Isovue-370 500 ML BOTTLE IVP ONE (13:31)
[2020-11-16] MEDS ORDERED: Gadolinium Contrast Agent (WT Based) IV PRN (13:33)
[2020-11-17 07:18] LABS: Hematocrit 33.1 % (37.5-50.1); Hemoglobin 10.2 g/dL (12.9-16.9); Immature Platelets 7.3 % (1.1-6.1); Mean Corpuscular HGB Conc 30.8 g/dL (31.6-35.5); Mean Corpuscular Hemoglobin 24.7 pg (28.0-33.3); Mean Corpuscular Volume 80.1 fL (83.0-100.0); Mean Platelet Volume 11.4 fL (9.4-12.4); Platelet Count 148 K/mcL (140-400); Red Blood Count 4.13 M/mcL (4.19-5.50); Red Cell Distribution Width 23.8 % (11.5-14.5); White Blood Count 8.9 K/mcL (4.3-11.1)
[2020-11-17 07:54] LABS: BUN/Creatinine Ratio 39 (6-26); Blood Urea Nitrogen 27 mg/dL (8-23); Calcium 7.8 mg/dL (8.6-10.3); Carbon Dioxide 27 mEq/L (23-29); Chloride 104 mEq/L (98-107); Glucose 131 mg/dL (70-105); Lymphocytes # 1.4 K/mcL (0.6-4.6); Monocytes # 0.4 K/mcL (0.0-1.3); Neutrophils # 7.1 K/mcL (1.6-8.9); Osmolality,Calculated 295 (280-300); Potassium 3.3 mEq/L (3.5-5.1); Sodium 139 mEq/L (136-145); eGFR For African Americans > 60 (> 60); eGFR For Non-African Americans > 60 (> 60)
[2020-11-17 07:55] LABS: Anisocytosis 1+ (Not Present); Hypochromasia Present (Not Present)
[2020-11-17] MEDS: Albuterol 2.5 MG/3 ML NEBULIZER IH PRN (07:55)
[2020-11-17 07:56] LABS: Platelet Estimate Slight Decrease (Normal)
[2020-11-17] MEDS: Ipratropium/Albuterol Neb 3 ML IH SCH ×5 (07:57→22:52)
[2020-11-17] MEDS: Nystatin SUSP 5 ML UD.LIQ PO SCH ×4 (08:54→21:22)
[2020-11-17] MEDS: predniSONE 20 MG TABLET PO SCH (08:54)
[2020-11-17] MEDS: Apixaban 5 MG TABLET PO SCH ×2 (08:54→21:21)
[2020-11-17] MEDS: Aspirin Enteric Coated 81 MG Tablet PO SCH (08:54)
[2020-11-17] MEDS: Furosemide 40 MG TABLET PO SCH (08:54)
[2020-11-17] MEDS: Metoprolol XL (24 HR) Succ 25 MG TAB.ER.24H PO SCH (08:55)
[2020-11-17] MEDS ORDERED: Perflutren Lipid Microsphere 1.3 ML in 0.9 % Sodium Chloride 8.7 ML IVP PRN (16:00)
[2020-11-18 03:37] LABS: Hematocrit 32.5 % (37.5-50.1); Immature Granulocytes % 3.3 % (0-4)
[2020-11-18 03:39] LABS: Basophils % 0.1 %; Hemoglobin 10.1 g/dL (12.9-16.9); Immature Platelets 6.6 % (1.1-6.1); Lymphocytes # 0.6 K/mcL (0.6-4.6); Lymphocytes % 7.8 %; Mean Corpuscular HGB Conc 31.1 g/dL (31.6-35.5); Mean Corpuscular Hemoglobin 24.3 pg (28.0-33.3); Mean Corpuscular Volume 78.1 fL (83.0-100.0); Mean Platelet Volume 10.5 fL (9.4-12.4); Monocytes # 0.8 K/mcL (0.0-1.3); Monocytes % 10.3 %; Platelet Count 145 K/mcL (140-400); Red Blood Count 4.16 M/mcL (4.19-5.50); Red Cell Distribution Width 23.5 % (11.5-14.5); Segmented Neutrophils % 78.5 %; White Blood Count 7.6 K/mcL (4.3-11.1)
[2020-11-18] MEDS: Ipratropium/Albuterol Neb 3 ML IH SCH ×6 (03:42→23:46)
[2020-11-18 03:57] LABS: BUN/Creatinine Ratio 41 (6-26); Blood Urea Nitrogen 25 mg/dL (8-23); Calcium 7.8 mg/dL (8.6-10.3); Carbon Dioxide 27 mEq/L (23-29); Chloride 103 mEq/L (98-107); Glucose 223 mg/dL (70-105); Osmolality,Calculated 295 (280-300); Potassium 3.8 mEq/L (3.5-5.1); Sodium 137 mEq/L (136-145); eGFR For African Americans > 60 (> 60); eGFR For Non-African Americans > 60 (> 60)
[2020-11-18 05:39] LABS: Platelet Estimate Normal (Normal)
[2020-11-18 05:40] LABS: Anisocytosis 3+ (Not Present); Hypochromasia Present (Not Present); Toxic Granulation Present (Not Present)
[2020-11-18] MEDS: Apixaban 5 MG TABLET PO SCH ×2 (08:22→21:15)
[2020-11-18] MEDS: Metoprolol XL (24 HR) Succ 25 MG TAB.ER.24H PO SCH (08:22)
[2020-11-18] MEDS: Furosemide 40 MG TABLET PO SCH (08:22)
[2020-11-18] MEDS: Nystatin SUSP 5 ML UD.LIQ PO SCH ×4 (08:22→21:13)
[2020-11-18] MEDS: predniSONE 20 MG TABLET PO SCH (08:22)
[2020-11-18] MEDS: Aspirin Enteric Coated 81 MG Tablet PO SCH (08:23)
[2020-11-18] MEDS: Ondansetron 4 MG/2 ML VIAL IVP PRN (13:58)
[2020-11-18] MEDS ORDERED: Isovue-370 500 ML BOTTLE IVP ONE (14:39)
[2020-11-19] MEDS: Ipratropium/Albuterol Neb 3 ML IH SCH ×5 (04:21→20:16)
[2020-11-19] MEDS: *HR* Metoprolol 5 MG/5 ML VIAL IVP ONE ×2 (07:38→07:56)
[2020-11-19] MEDS: Furosemide 20 MG/2 ML VIAL IVP ONE ×4 (07:38→07:58)
[2020-11-19] MEDS: Furosemide 40 MG TABLET PO SCH (07:39)
[2020-11-19] MEDS ORDERED: MethylPREDNISolone 40 MG/ML VIAL IVP ONE (07:39)
[2020-11-19] MEDS: predniSONE 20 MG TABLET PO SCH (07:41)
[2020-11-19 07:58] LABS: ABG Base Excess 2 mEq/L (-2 to 3); ABG HCO3 27 mEq/L (21-27); ABG Oxygen Saturation 88 % (95-98); ABG PCO2 45 mmHg (35-45); ABG PH 7.39 pH Units (7.32-7.45); ABG PO2 55 mmHg (85-104); ABG TCO2 29 mEq/L (20-26)
[2020-11-19] MEDS: Aspirin Enteric Coated 81 MG Tablet PO SCH (07:58)
[2020-11-19] MEDS: Apixaban 5 MG TABLET PO SCH (07:58)
[2020-11-19] MEDS: Nystatin SUSP 5 ML UD.LIQ PO SCH (08:00)
[2020-11-19 09:59] LABS: Adenovirus Not Detected (Not Detect); Bordetella Pertussis Not Detected (Not Detect); Chlamydophila pneumoniae Not Detected (Not Detect); Coronavirus 229E Not Detected (Not Detect); Coronavirus HKU1 Not Detected (Not Detect); Coronavirus NL63 Not Detected (Not Detect); Coronavirus OC43 Not Detected (Not Detect); Human Metapneumovirus Not Detected (Not Detect); Human Rhinovirus/Enterovirus Not Detected (Not Detect); Influenza A Subtype 2009 H1 Not Detected (Not Detect); Influenza B Not Detected (Not Detect); Mycoplasma pneumoniae Not Detected (Not Detect); Parainfluenza Virus 1 Not Detected (Not Detect); Parainfluenza Virus 2 Not Detected (Not Detect); Parainfluenza Virus 3 Not Detected (Not Detect); Parainfluenza Virus 4 Not Detected (Not Detect); Respiratory Syncytial Virus Not Detected (Not Detect); SARS-CoV-2 Not Detected (Not Detect)
[2020-11-19] MEDS ORDERED: Haloperidol Lactate 5 MG/ML VIAL IVP ONE (10:34)
[2020-11-19 10:36] LABS: BUN/Creatinine Ratio 34 (6-26); Blood Urea Nitrogen 28 mg/dL (8-23); Calcium 8.5 mg/dL (8.6-10.3); Carbon Dioxide 24 mEq/L (23-29); Chloride 102 mEq/L (98-107); Glucose 172 mg/dL (70-105); Osmolality,Calculated 294 (280-300); Potassium 4.3 mEq/L (3.5-5.1); Sodium 137 mEq/L (136-145); eGFR For African Americans > 60 (> 60); eGFR For Non-African Americans > 60 (> 60)
[2020-11-19 10:43] LABS: Troponin I 0.13 ng/mL (< 0.04)
[2020-11-19] MEDS ORDERED: Isovue-370 500 ML BOTTLE IVP ONE (11:21)
[2020-11-19 11:25] LABS: Hematocrit 40.4 % (37.5-50.1); Red Cell Distribution Width 24.7 % (11.5-14.5)
[2020-11-19 11:26] LABS: Hemoglobin 12.4 g/dL (12.9-16.9); Mean Corpuscular HGB Conc 30.7 g/dL (31.6-35.5); Mean Corpuscular Hemoglobin 24.5 pg (28.0-33.3); Mean Corpuscular Volume 79.7 fL (83.0-100.0); Mean Platelet Volume 10.5 fL (9.4-12.4); Platelet Count 369 K/mcL (140-400); Red Blood Count 5.07 M/mcL (4.19-5.50); White Blood Count 29.9 K/mcL (4.3-11.1)
[2020-11-19] MEDS ORDERED: Vancomycin (wt based) 1,000 MG VIAL IVPB SCH (12:00)
[2020-11-19] MEDS: levoFLOXacin 750 MG/150 ML 750 MG/150 ML BAG IVPB SCH (13:10)
[2020-11-19] MEDS: Vancomycin 1,500 MG/265 ML IV.SOLN IVPB SCH (15:04)
[2020-11-19] MEDS: Ondansetron 4 MG/2 ML VIAL IVP PRN (15:33)
[2020-11-19] MEDS: Albuterol 2.5 MG/3 ML NEBULIZER IH PRN (18:30)
[2020-11-19] MEDS: Piperacillin/Tazobactam 3.375 GM in 0.9 % Sodium Chloride Mini Bag 100 ML IVPB SCH (18:36)
[2020-11-19] MEDS: *HR* Metoprolol 5 MG/5 ML VIAL IVP SCH (18:39)
[2020-11-19] MEDS ORDERED: Furosemide 40 MG/4 ML VIAL IVP ONE (23:32)
[2020-11-20] MEDS: Piperacillin/Tazobactam 3.375 GM in 0.9 % Sodium Chloride Mini Bag 100 ML IVPB SCH ×2 (00:18→08:15)
[2020-11-20] MEDS: Ipratropium/Albuterol Neb 3 ML IH SCH ×4 (00:28→11:09)
[2020-11-20] MEDS: *HR* Metoprolol 5 MG/5 ML VIAL IVP SCH ×2 (01:42→05:18)
[2020-11-20] MEDS: Vancomycin 1,500 MG/265 ML IV.SOLN IVPB SCH (01:44)
[2020-11-20 07:21] LABS: Red Cell Distribution Width 25.2 % (11.5-14.5)
[2020-11-20 07:22] LABS: Hematocrit 38.8 % (37.5-50.1); Hemoglobin 12.1 g/dL (12.9-16.9); Mean Corpuscular HGB Conc 31.2 g/dL (31.6-35.5); Mean Corpuscular Hemoglobin 24.8 pg (28.0-33.3); Mean Corpuscular Volume 79.7 fL (83.0-100.0); Mean Platelet Volume 11.5 fL (9.4-12.4); Platelet Count 423 K/mcL (140-400); Red Blood Count 4.87 M/mcL (4.19-5.50); White Blood Count 26.8 K/mcL (4.3-11.1)
[2020-11-20 07:46] LABS: Calcium 8.4 mg/dL (8.6-10.3); Potassium 4.6 mEq/L (3.5-5.1)
[2020-11-20] MEDS ORDERED: 0.9 % Sodium Chloride 500 ML ONE (07:57)
[2020-11-20] MEDS ORDERED: 0.9 % Sodium Chloride 500 ML IVC PRN (08:00)
[2020-11-20] MEDS: Sennosides/Docusate Sodium TABLET PO ONE ×2 (08:15→10:48)
[2020-11-20] MEDS: Ondansetron 4 MG/2 ML VIAL IVP PRN ×2 (08:51→14:07)
[2020-11-20] MEDS ORDERED: Furosemide 20 MG/2 ML VIAL IVP SCH (09:00)
[2020-11-20] MEDS ORDERED: *HR* FentaNYL (PF) 100 MCG/2 ML VIAL IVP PRN (12:01)
[2020-11-20] MEDS: *HR* LORazepam Oral Conc 2 MG/ML SL PRN (13:55)
[2020-11-20] MEDS ORDERED: Ondansetron 4 MG/2 ML VIAL IVP PRN (14:37)
[2020-11-20] MEDS ORDERED: Atropine 1% Opth Drops 100 DROP/5 ML BOTTLE SL PRN (14:38)
[2020-11-20] MEDS: levoFLOXacin 750 MG/150 ML 750 MG/150 ML BAG IVPB SCH (19:30)
[2020-11-20] MEDS: Nystatin SUSP 5 ML UD.LIQ PO SCH (19:31)
[2020-11-21] MEDS: Albuterol 2.5 MG/3 ML NEBULIZER IH PRN (07:21)
[2020-11-21 08:03] VITALS: BP 70/48
[2020-11-21] MEDS: *HR* LORazepam Oral Conc 2 MG/ML SL PRN (09:42)
[2020-11-21 18:46] LABS: Acinetobacter baumannii by PCR Not Detected (Not Detect); Candida albicans by PCR Not Detected (Not Detect); Candida glabrata by PCR Not Detected (Not Detect); Candida krusei by PCR Not Detected (Not Detect); Candida parapsilosis by PCR Not Detected (Not Detect); Candida tropicalis by PCR Not Detected (Not Detect); Enterobacter cloacae Cmplx PCR Not Detected (Not Detect); Enterococcus by PCR Not Detected (Not Detect); Escherichia coli by PCR DETECTED (Not Detect); Klebsiella oxytoca by PCR Not Detected (Not Detect); Klebsiella pneumoniae by PCR Not Detected (Not Detect); Proteus by PCR Not Detected (Not Detect); Pseudomonas aeruginosa by PCR Not Detected (Not Detect); Serratia marcescens by PCR Not Detected (Not Detect); Staphylococcus aureus by PCR Not Detected (Not Detect); Staphylococcus by PCR Not Detected (Not Detect); Streptococcus agalactiae(B)PCR Not Detected (Not Detect); Streptococcus by PCR Not Detected (Not Detect); Streptococcus pneumoniae PCR Not Detected (Not Detect); Streptococcus pyogenes (A) PCR Not Detected (Not Detect)
== END 2020-11-21 13:16 | disposition hospice, inpatient (51) | DRG 720 ==
LOC: 2NENU → SUATTDRO 11-14 15:19 → 3ANU 11-16 18:55 → 2NENU 11-19 14:08 → 2ANU 11-20 12:59
PROVIDERS: ADMIT Internal Medicine; ATTEND Family Medicine

== ENCOUNTER 2020-11-21 10:11 | Inpatient (IN) ==
[2020-11-21] MEDS ORDERED: Ipratropium/Albuterol Neb 3 ML IH PRN (10:13)
[2020-11-21] MEDS ORDERED: Scopolamine Patch 1.5 MG PATCH.TD72 TD PRN (10:13)
[2020-11-21] MEDS: Haloperidol Oral Conc 10 MG/5 ML UDC PO SCH ×3 (14:48→22:10)
[2020-11-21] MEDS: *HR* LORazepam Oral Conc 2 MG/ML PO SCH ×3 (14:57→20:30)
[2020-11-22] MEDS: *HR* LORazepam Oral Conc 2 MG/ML PO SCH ×3 (00:15→09:37)
[2020-11-22] MEDS: Atropine 1% Opth Drops 100 DROP/5 ML BOTTLE SL PRN ×2 (00:16→04:13)
[2020-11-22] MEDS: Haloperidol Oral Conc 10 MG/5 ML UDC PO SCH (04:13)
[2020-11-22 06:44] VITALS: BP 57/36
== END 2020-11-22 10:19 | disposition expired | DRG 951 ==
LOC: 2ANU 13:17
PROVIDERS: ADMIT Internal Medicine Hospice and Palliative Medicine; ATTEND Internal Medicine Hospice and Palliative Medicine